=== PATIENT | male | born 1960 | race American Indian/Alaskan Native ===

== ENCOUNTER 2016-10-11 17:20 | Inpatient (IN) | payer MEDICAID ==
--- NOTE | 2016-10-11 18:21 | Cat Scan Report ---
FINAL REPORT PROCEDURE: CT HEAD/BRAIN WO CON TECHNIQUE: Computerized tomography of the head was performed without contrast material. HISTORY: neuro deficits \T\lt; 6hrs or sx present upon awakening COMPARISON: 04/17/2016 FINDINGS: No CT evidence of intracranial mass, hemorrhage, hydrocephalus, or acute territorial infarction. Intracranial arteries are symmetric in density. Two right-sided beto holes are present. No acute fracture is seen. There is opacification of the left maxillary sinus and mucosal thickening of bilateral ethmoid sinuses. IMPRESSION: No CT evidence of acute intracranial abnormality
[2016-10-11 18:52] LABS: Basophils % (Auto) 0.7 % (0.0-1.8); Eosinophils % (Auto) 2.7 % (0.0-4.3); Hematocrit 47.5 % (35.5-45.6); Hemoglobin 15.7 gm/dl (11.8-15.2); Mean Corpuscular HGB Conc 33 % (32-34); Mean Corpuscular Hemoglobin 32 pg (28-32); Mean Corpuscular Volume 96 fl (84-94); Platelet Count 305 K/mm3 (140-440); Red Blood Count 4.95 M/mm3 (3.65-5.03); Red Cell Distribution Width 13.8 % (13.2-15.2)
[2016-10-11 19:00] LABS: INR 0.98 (0.87-1.13)
[2016-10-11 19:01] LABS: Partial Thromboplastin Time 31.7 Sec. (24.2-36.6)
[2016-10-11 19:02] LABS: Anion Gap 22 mmol/L; BUN/Creatinine Ratio 11.81; Blood Urea Nitrogen 13 mg/dL (9-20); Calcium 8.9 mg/dL (8.4-10.2); Carbon Dioxide 22 mmol/L (22-30); Chloride 98.4 mmol/L (98-107); Glucose 89 mg/dL (75-100); Potassium 4.2 mmol/L (3.6-5.0); Sodium 138 mmol/L (137-145)
[2016-10-11] MEDS ORDERED: ASPIRIN PO ONE (21:01)
[2016-10-11] MEDS ORDERED: NORCO 5/325 PO ONE (21:01)
--- NOTE | 2016-10-11 21:08 | Emergency Department Report ---
HPI - General Chief Complaint: Altered Mental Status Time Seen by Provider: 10/11/16 20:51 - HPI HPI: Room 18 Patient is a 56-year-old male presenting with a chief complaint of right upper extremity paresthesia. The patient states yesterday started having a "pins and needles" sensation in his right upper extremity. The patient states today he developed numbness intermittently associated with "pins and needles" sensation area patient denies any symptoms in his lower extremities or face. Patient denies dysarthria or dysphagia. Patient states she is uncertain if his right upper extremity exhibited weakness or not. Patient states the paresthesia that his felt his right upper extremity felt similar to the presentation of his previous CVA. Sensation states he developed a headache this morning Location: Right upper extremity Duration: [see above] Quality: "Pins and needles" and numbness Severity: Moderate Modifying factors: [see above] Context: [see above] Mode of transportation: [not driving] ED Past Medical Hx - Past Medical History Hx Hypertension: Yes Hx CVA: Yes Hx Seizures: Yes Additional medical history: head injury/brain sx 08/2015 - Surgical History Additional Surgical History: brain sx 2015 - Family History Family history: no significant - Social History Smoking Status: Current Every Day Smoker (1/3 pack per day) Substance Use Type: Alcohol (occasional) - Medications Home Medications: Home Medications Medication Instructions Recorded Confirmed Last Taken Type Aspirin EC [Aspirin Enteric Coated 81 mg PO QDAY #30 tablet. 04/19/16 1 Day Ago Rx TAB] 81 Fluticasone [Flonase] 100 mcg NS QDAY 7 Days 04/19/16 10/11/16 1 Day Ago Rx 1 Hydrochlorothiazide [HCTZ] 50 mg PO QDAY #30 tablet 04/19/16 10/11/16 1 Day Ago Rx 25 Simvastatin [Zocor TAB] 40 mg PO QHS #30 tablet 04/19/16 10/11/16 1 Day Ago Rx 20 Verapamil [Calan] 80 mg PO DAILY #30. tablet 04/19/16 10/11/16 1 Day Ago Rx 80 Gabapentin Enacarbil [Horizant] 1,200 mg PO TID 10/11/16 10/11/16 1 Day Ago History 1200 traMADol [Ultram] 50 mg PO BID PRN 10/11/16 10/11/16 1 Day Ago History 50 ED Review of Systems ROS: Stated complaint: RT ARM PAIN Other details as noted in HPI Comment: All other systems reviewed and negative Constitutional: denies: chills, fever Eyes: denies: eye pain, eye discharge, vision change ENT: denies: ear pain, throat pain Respiratory: denies: cough, shortness of breath, wheezing Cardiovascular: denies: chest pain, palpitations Endocrine: no symptoms reported Gastrointestinal: denies: abdominal pain, nausea, diarrhea Genitourinary: denies: urgency, dysuria Musculoskeletal: denies: back pain, joint swelling, arthralgia Neurological: headache, paresthesias Psychiatric: denies: anxiety, depression Hematological/Lymphatic: denies: easy bleeding, easy bruising Physical Exam - Physical Exam Vital Signs: Vital Signs 10/11/16 10/11/16 17:27 20:57 Temperature 98.5 F Pulse Rate 95 H 91 H Respiratory 22 18 Rate Blood Pressure 197/118 Blood Pressure 191/107 [Left] O2 Sat by Pulse 98 99 Oximetry Physical Exam: GENERAL: The patient is well-developed well-nourished male lying on stretcher not appearing to be in acute distress. [] HEENT: Evidence of previous right frontal craniotomy. Atraumatic. Extraocular motions are intact. Patient has moist mucous membranes. NECK: Supple. Trachea midline CHEST/LUNGS: Clear to auscultation. There is no respiratory distress noted. HEART/CARDIOVASCULAR: Regular. There is no tachycardia. There is no gallop rub or murmur. ABDOMEN: Abdomen is soft, nontender. Patient has normal bowel sounds. There is no abdominal distention. SKIN: There is no rash. There is no edema. There is no diaphoresis. NEURO: The patient is awake, alert, and oriented. The patient is cooperative. Cranial nerves II through XII grossly intact. Decreased sensation right upper extremity. Normal sensation bilateral lower extremities. Hydrogen Braze Furnace Operator equal bilaterally. No pronator drift. The patient has normal speech MUSCULOSKELETAL: There is no limitation range of motion. There is no evidence of acute injury. ED Course Vital Signs 10/11/16 10/11/16 17:27 20:57 Temperature 98.5 F Pulse Rate 95 H 91 H Respiratory 22 18 Rate Blood Pressure 197/118 Blood Pressure 191/107 [Left] O2 Sat by Pulse 98 99 Oximetry ED Medical Decision Making - Lab Data Result diagrams: 10/11/16 18:12 10/11/16 18:12 Laboratory Tests 10/11/16 10/11/16 10/11/16 17:58 18:12 18:12 WBC 10.0 RBC 4.95 Hgb 15.7 H Hct 47.5 H MCV 96 H MCH 32 MCHC 33 RDW 13.8 Plt Count 305 Lymph % (Auto) 17.7 Foster % (Auto) 6.5 Eos % (Auto) 2.7 Baso % (Auto) 0.7 Lymph # 1.8 Foster # 0.6 Eos # 0.3 Baso # 0.1 Seg Neutrophils % 72.4 H Seg Neutrophils # 7.2 PT INR APTT Thrombin Time Sodium 138 Potassium 4.2 Chloride 98.4 Carbon Dioxide 22 Anion Gap 22 BUN 13 Creatinine 1.1 Estimated GFR > 60 BUN/Creatinine Ratio 11.81 Glucose 89 POC Glucose 82 Lactic Acid Calcium 8.9 Troponin T 10/11/16 10/11/16 10/11/16 18:12 18:12 18:12 WBC RBC Hgb Hct MCV MCH MCHC RDW Plt Count Lymph % (Auto) Foster % (Auto) Eos % (Auto) Baso % (Auto) Lymph # Foster # Eos # Baso # Seg Neutrophils % Seg Neutrophils # PT 12.9 INR 0.98 APTT 31.7 Thrombin Time Sodium Potassium Chloride Carbon Dioxide Anion Gap BUN Creatinine Estimated GFR BUN/Creatinine Ratio Glucose POC Glucose Lactic Acid 1.2 Calcium Troponin T < 0.010 10/11/16 18:12 WBC RBC Hgb Hct MCV MCH MCHC RDW Plt Count Lymph % (Auto) Foster % (Auto) Eos % (Auto) Baso % (Auto) Lymph # Foster # Eos # Baso # Seg Neutrophils % Seg Neutrophils # PT INR APTT Thrombin Time 15.6 Sodium Potassium Chloride Carbon Dioxide Anion Gap BUN Creatinine Estimated GFR BUN/Creatinine Ratio Glucose POC Glucose Lactic Acid Calcium Troponin T - EKG Data -: EKG Interpreted by Me EKG shows normal: sinus rhythm Rate: normal - EKG Data When compared to previous EKG there are: previous EKG unavailable Interpretation: other (no ST segments or T-wave inversions seen) - Radiology Data Radiology results: report reviewed (CT head), image reviewed (CT head) CT head (read by radiologist)-no CT evidence of acute intracranial abnormality - Differential Diagnosis CVA, TIA, hypertensive urgency, rotator cuff injury, cervical radiculopathy Critical care attestation.: If time is entered above; I have spent that time in minutes in the direct care of this critically ill patient, excluding procedure time. ED Disposition Clinical Impression: CVA (cerebral vascular accident), Paresthesia of right upper extremity Disposition: OP ADMITTED IP TO THIS HOSP Is pt being admited?: Yes Does the pt Need Aspirin: Yes Condition: Fair Referrals: PRIMARY CARE,MD [Primary Care Provider] - 3-5 Days Time of Disposition: 21:15 (hospitalist paged)
[2016-10-12] MEDS: PERCOCET 5/325 PO PRN ×2 (04:58→21:14)
[2016-10-12] MEDS ORDERED: ULTRAM PO PRN (05:19)
[2016-10-12] MEDS ORDERED: SODIUM CHLORIDE FLUSH SYRINGE 10 ML IV PRN (05:39)
--- NOTE | 2016-10-12 05:44 | Event Note ---
Date: 10/11/16 See H/p in reports Acute CVA-??Thalamic stroke HTN HLD PN
[2016-10-12] MEDS ORDERED: GABAPENTIN ENACARBIL 1200 MG PO SCH (08:00)
--- NOTE | 2016-10-12 08:55 | Admit Criteria Form ---
Admission Criteria Documentation: STROKE: ISCHEMIC Clinical Indications for Admission to Inpatient Care (Place 'X' for any and all applicable criteria): Admission is indicated for ANY ONE of the following(1)(2)(3)(4): [X]I. Acute stroke Extended stay beyond goal length of stay may be needed for(1)(2) [ ]a) Major deficit or clinical deterioration [ ]b) Hospital-acquired infection (eg, urinary tract infection, pneumonia) [ ]c) Embolic cause of stroke [ ]d) Venous thromboembolism(9) [ ]e) Seizures [ ]f) Bleeding (eg, cerebral) [ ]g) Increased intracranial pressure [ ]h) Comorbidities [ ]i) Surgical intervention The original [facility] content created by [employer] has been revised. The portions of the content which have been revised are identified through the use of italic text or in bold, and [facility] has neither reviewed nor approved the modified material. All other unmodified content is copyright [facility]. Please see references footnoted in the original [facility] edition 2016 Admission Criteria Met: Yes
[2016-10-12] MEDS ORDERED: ATIVAN IV STA (09:23)
[2016-10-12] MEDS ORDERED: CALAN PO SCH ×2 (10:00)
--- NOTE | 2016-10-12 10:41 | Magnetic Resonance Report ---
MRI OF THE BRAIN WITHOUT CONTRAST: HISTORY: CVA PROCEDURE: Multiplanar, multisequence MR imaging of the brain without IV contrast was performed. FINDINGS: Mild nonspecific chronic white matter changes are identified. Otherwise, the brain parenchyma signal intensity and its coronel white interface are within normal limits on all sequences. No evidence for acute ischemia, hemorrhage or mass. No chronic infarct or extra-axial fluid collection. The midline structures are central. The basal cisterns are patent. Normal ventricular size. The orbital cavities and sella turcica demonstrate no abnormality. There is complete opacification left maxillary sinus with fluid and mucosal thickening. Diffusion restriction overlies the left maxillary sinus consistent with acute sinusitis. IMPRESSION: No acute intracranial process. Chronic white matter changes. Correlate for acute left maxillary sinusitis.
--- NOTE | 2016-10-12 10:46 | Magnetic Resonance Report ---
MRA HEAD WITHOUT CONTRAST HISTORY: CVA. [id number] imaging with MIP reformations of the bois forte of [place] is submitted. The arteries appear widely patent and free of hemodynamically significant stenosis or aneurysm dilatation. Both vertebral arteries are identified appearing patent as well. IMPRESSION: Unremarkable MRA head.
--- NOTE | 2016-10-12 11:09 | Consultation ---
History of Present Illness Consult date: 10/12/16 Requesting physician: FORREST PATTERSON Reason for Consult: stroke Chief complaint: R arm numbness/tingling History of present illness: 56 YO M Hx stroke in Aug 2014 c/b residual L hemiparesis who p/w acute onset of R arm numbness/tingling and pain on 10/10. Sx were intermittent waxing and waning but concerning to patient as similar to prior stroke sx. he is unclear of any weakness. There were no clear aggravating, relieving or temporal factors. severity was such to cause the patient to favor his weaker L hand. He denies facial or leg sx. Past History Past Medical History: hypertension, stroke Past Surgical History: Other Social history: no significant social history, single, Lives alone Family history: hypertension Medications and Allergies Allergies Allergy/AdvReac Type Severity Reaction Status Date / Time No Known Allergies Allergy Unverified 04/17/16 15:30 Home Medications Medication Instructions Recorded Confirmed Last Taken Type Aspirin EC [Aspirin Enteric Coated 81 mg PO QDAY #30 tablet. 04/19/16 1 Day Ago Rx TAB] 81 Fluticasone [Flonase] 100 mcg NS QDAY 7 Days 04/19/16 10/11/16 1 Day Ago Rx 1 Hydrochlorothiazide [HCTZ] 50 mg PO QDAY #30 tablet 04/19/16 10/11/16 1 Day Ago Rx 25 Simvastatin [Zocor TAB] 40 mg PO QHS #30 tablet 04/19/16 10/11/16 1 Day Ago Rx 20 Verapamil [Calan] 80 mg PO DAILY #30. tablet 04/19/16 10/11/16 1 Day Ago Rx 80 Gabapentin Enacarbil [Horizant] 1,200 mg PO TID 10/11/16 10/11/16 1 Day Ago History 1200 traMADol [Ultram] 50 mg PO BID PRN 10/11/16 10/11/16 1 Day Ago History 50 Active Meds: Active Medications Aspirin (Halfprin Ec) 81 mg PO QDAY [facility] Enoxaparin Sodium (Lovenox) 40 mg SUB-Q QDAY [facility] Fluticasone Propionate (Flonase) 100 mcg NS QDAY [facility] Hydrochlorothiazide (Hctz) 50 mg PO QDAY [facility] Sodium Chloride (Nacl 0.9% 1000 Ml) 1,000 mls @ 75 mls/hr IV DIRECT [facility] Miscellaneous Medication (Gabapentin Enacarbil [Horizant]) 1,200 mg PO TID [facility] Oxycodone/Acetaminophen (Percocet 5/325) 1 tab PO Q6H PRN PRN Reason: Pain, Moderate (4-6) Last Admin: 10/12/16 04:58 Dose: 1 tab Potassium Chloride (K-Dur) 20 meq PO QDAY [facility] Simvastatin (Zocor) 20 mg PO QHS [facility] Sodium Chloride (Sodium Chloride Flush Syringe 10 Ml) 10 ml IV PRN PRN PRN Reason: LINE FLUSH Tramadol HCl (Ultram) 50 mg PO BID PRN PRN Reason: Pain Verapamil HCl (Calan Sr) 240 mg PO DAILY [facility] Review of Systems All systems: negative Constitutional: weakness Neurological: weakness, parathesias, numbness, tingling, motor disturbance, sensory deficit Physical Examination - Vital Signs Vital Signs: Vital Signs Temp Pulse Resp BP Pulse Ox 98.5 F 95 H 22 197/118 98 10/11/16 17:27 10/11/16 17:27 10/11/16 17:27 10/11/16 17:27 10/11/16 17:27 - Constitutional General appearance: comfortable - EENT EENT: Present: ATNC, PERRL, mucous membranes moist, hearing intact, vision intact - Respiratory Respiratory: Present: chest non-tender, normal breath sounds, no respiratory distress - Cardiovascular Cardiovascular: Present: regular rate Extremities: Present: no peripheral edema bilatateraly, no clubbing, cyanosis, no inflammation, no ischemia or petechiae - Gastrointestinal Gastrointestinal: Present: normoactive bowel sounds, non-distended - Integumentary Integumentary: Present: normal - Neurologic Cranial nerve examination: PERRL, EOMI, VFF, V1/V2/V3 grossly intact, tongue midline, intact, intact shoulder shrug, intact cough reflex, Intact Vestibulo- ocular r, intact corneal reflex, facial droop (on L) Speech examination: intact Sensorimotor examination: pronator drift, hemiparesis (on L) Motor examination - right side: 5/5: biceps, triceps, wrist flexion, wrist extension, solutions development analyst, hip flexors, knee extensors, dorsiflexion, toe extension (EHL) , plantarflexion Motor examination - left side: 4/5: biceps, triceps, wrist flexion, wrist extension, solutions development analyst, hip flexors, knee extensors, dorsiflexion, toe extension (EHL) , plantarflexion Detailed sensory examination: light touch (diminished on L compared to R), temperature (diminished on L compared to R) Reflex and gait examination: Babinski's sign (on L) Reflexes: 3+: ankle (on L), bicep, knee, tricep - Musculoskeletal Musculoskeletal: Present: no fluid collection, normal range of motion Results - Laboratory Findings CBC and BMP: 10/11/16 18:12 10/11/16 18:12 - Diagnostic Findings Additional findings: MRI Brain nonacute white matter disease. CDs neg. Assessment and Plan 56 YO M Hx HTN and stroke in Aug 2014 c/b residual L F/A/L hypoesthesia and hemiparesis p/w 2 day hx of intermittent R arm migratory numbness/tingling pain w/ affirmed neck pain. There is no weakness or reflex abnormality evident in the R hemibody while the L hemibody findings are likely chronic. CTH neg. CDs neg. MRI Brain nonacute white matter disease w/o acute infarct. Clinical syn likely HTN emergency vs. cervical radiculopathy, not TIA/stroke Plan and Recommendation: 1. Telemetry bed w/ Q4 hour neuro checks 2. Pt declines offer of MRI C-spine during admission. There is no emergent role for this study in the absence of myelopathic features. 3. Can lower MAPs by 10-15% daily to reach goal SBP 120-160 4. Secondary stroke prevention: Cont home ASA/statin. 5. Can cont analgesic therapy. 6. Outpt neurological follow up recommended to reconsider MRI C-spine should sx be persistent or worsen. 7. We can revisit as needed.
[2016-10-12] MEDS: FLONASE NS SCH (11:11)
[2016-10-12] MEDS: LOVENOX SUB-Q SCH (11:11)
[2016-10-12] MEDS: HCTZ PO SCH (11:13)
[2016-10-12] MEDS: HALFPRIN EC PO SCH (11:13)
[2016-10-12] MEDS: K-DUR PO SCH (11:14)
[2016-10-12] MEDS: CALAN SR PO SCH (11:16)
--- NOTE | 2016-10-12 14:27 | Consultation ---
History of Present Illness - Reason for Consult Consult date: 10/12/16 Evaluate for Acute IRU - History of Present Illness 56 y.o. male with prior right CVA and minimal residual left sided hemiparesis who presented with acute onset of RUE numbness and parasthesias. CVA work-up initiated. CT Brain negative; F/U MRI Brain also negative for acute CVA. Consult placed for post-acute placement recommendations. Past History Past Medical History: hypertension, seizures, stroke Past Surgical History: Other (craniotomy for aneurysm) Social history: no significant social history, , lives with family Family history: hypertension, stroke Medications and Allergies Allergies Allergy/AdvReac Type Severity Reaction Status Date / Time No Known Allergies Allergy Unverified 04/17/16 15:30 Home Medications Medication Instructions Recorded Confirmed Last Taken Type Aspirin EC [Aspirin Enteric Coated 81 mg PO QDAY #30 tablet. 04/19/16 1 Day Ago Rx TAB] 81 Fluticasone [Flonase] 100 mcg NS QDAY 7 Days 04/19/16 10/11/16 1 Day Ago Rx 1 Hydrochlorothiazide [HCTZ] 50 mg PO QDAY #30 tablet 04/19/16 10/11/16 1 Day Ago Rx 25 Simvastatin [Zocor TAB] 40 mg PO QHS #30 tablet 04/19/16 10/11/16 1 Day Ago Rx 20 Verapamil [Calan] 80 mg PO DAILY #30. tablet 04/19/16 10/11/16 1 Day Ago Rx 80 Gabapentin Enacarbil [Horizant] 1,200 mg PO TID 10/11/16 10/11/16 1 Day Ago History 1200 traMADol [Ultram] 50 mg PO BID PRN 10/11/16 10/11/16 1 Day Ago History 50 Active Meds: Active Medications Aspirin (Halfprin Ec) 81 mg PO QDAY [facility] Last Admin: 10/12/16 11:13 Dose: 81 mg Enoxaparin Sodium (Lovenox) 40 mg SUB-Q QDAY [facility] Last Admin: 10/12/16 11:11 Dose: 40 mg Fluticasone Propionate (Flonase) 100 mcg NS QDAY [facility] Last Admin: 10/12/16 11:11 Dose: 100 mcg Gabapentin (Neurontin) 1,200 mg PO TID [facility] Hydrochlorothiazide (Hctz) 50 mg PO QDAY [facility] Last Admin: 10/12/16 11:13 Dose: 50 mg Sodium Chloride (Nacl 0.9% 1000 Ml) 1,000 mls @ 75 mls/hr IV DIRECT [facility] Oxycodone/Acetaminophen (Percocet 5/325) 1 tab PO Q6H PRN PRN Reason: Pain, Moderate (4-6) Last Admin: 10/12/16 04:58 Dose: 1 tab Potassium Chloride (K-Dur) 20 meq PO QDAY [facility] Last Admin: 10/12/16 11:14 Dose: 20 meq Simvastatin (Zocor) 20 mg PO QHS [facility] Sodium Chloride (Sodium Chloride Flush Syringe 10 Ml) 10 ml IV PRN PRN PRN Reason: LINE FLUSH Tramadol HCl (Ultram) 50 mg PO BID PRN PRN Reason: Pain Verapamil HCl (Calan Sr) 240 mg PO DAILY [facility] Last Admin: 10/12/16 11:16 Dose: 240 mg Review of Systems All systems: negative Ears, nose, mouth and throat: headache (intermittent) Cardiovascular: no chest pain, no lightheadedness Respiratory: dyspnea on exertion, no cough Gastrointestinal: no nausea, no vomiting Genitourinary Male: no dysuria Musculoskeletal: arm numbness/tingling Exam - Constitutional Vitals: Vital Signs - 12hr 10/12/16 10/12/16 10/12/16 04:00 07:00 07:23 Temperature 98.0 F 98.4 F Pulse Rate [ 60 57 L Left Radial] Respiratory 20 20 Rate Blood Pressure 170/87 165/96 [Left Arm] O2 Sat by Pulse 97 98 Oximetry General appearance: no acute distress, other (sitting up in bed; present) - EENT Eyes: EOM intact ENT: hearing intact - Neck Neck: supple, normal ROM - Respiratory Respiratory effort: normal Respiratory: bilateral: CTA - Cardiovascular Rhythm: regular Heart Sounds: Present: S1 & S2 - Extremities Extremities: No edema - Gastrointestinal General gastrointestinal: Present: soft, non-tender, non-distended, normal bowel sounds - Integumentary Integumentary: Present: clear - Musculoskeletal Musculoskeletal: strength equal bilaterally (4/5 throughout) - Neurologic Neurologic: CNII-XII intact, moves all extremities, other (sensation grossly intact) - Psychiatric Psychiatric: intact judgment & insight, memory intact (oriented to self; poor historian of medical conditions), cooperative, other (flat affect) - Labs CBC & Chem 7: 10/11/16 18:12 10/11/16 18:12 Labs: Laboratory Results - last 72 hr 10/12/16 06:20 POC Glucose 95 Assessment and Plan Patient was assessed and evaluated for Acute Inpatient Rehab Unit. 56 yo male with prior CVA admitted to R/O CVA; work-up negative; ?symptoms secondary to cervical radiculopathy. Pt is pending PT/OT evaluations; need for home vs outpt therapy to follow based on level of independence with therapies. Ongoing HTN management per IM. Please call for further questions. Thank you for consultation. - Patient Problems (1) Paresthesia of right upper extremity Current Visit: Yes Status: Acute (2) History of CVA with residual deficit Current Visit: Yes Status: Acute (3) HTN (hypertension), benign Current Visit: Yes Status: Chronic
[2016-10-12] MEDS: NACL 0.9% 1000 ML 1,000 ML IV SCH (14:35)
[2016-10-12] MEDS: NEURONTIN PO SCH ×2 (14:37→21:12)
--- NOTE | 2016-10-12 16:25 | Progress Note ---
Assessment and Plan Assessment and plan: 1. Generalized weakness Most likely due to chronic debility, stroke work up is negative so far, MRI/ MRA brain are negative. Follow-up echo and carotid Dopplers 2. Accelerated HTN We'll optimize medications 3. HLD check lipid panel History Interval history: Patient if he has right-sided weakness, however his states that his weakness is generalized, he's not quite sure he knows he is weak all over but he is more bothered with the weakness in his right side Hospitalist Physical - Physical exam Narrative exam: General: Patient appears well in no distress HEENT: MMM, EOMI cardiac: S1-S2 heard lungs: clear to auscultation, abdomen: soft, nontender, nondistended bowel sounds positive extremities: no edema clubbing or cyanosis Skin: no rash or lesion Neuro: generalized weaknesss, but no focal deficit Psych: appropriate behavior and mood, cognition intact - Constitutional Vitals: Temp Pulse Resp BP Pulse Ox 98.4 F 57 L 20 165/96 98 10/12/16 07:00 10/12/16 07:00 10/12/16 07:00 10/12/16 07:00 10/12/16 07:23 General appearance: Present: no acute distress, other (sitting up in bed; present) Results - Labs CBC & Chem 7: 10/11/16 18:12 10/11/16 18:12 Labs: Laboratory Last Values WBC 10.0 K/mm3 (4.5-11.0) 10/11/16 18:12 RBC 4.95 M/mm3 (3.65-5.03) 10/11/16 18:12 Hgb 15.7 gm/dl (11.8-15.2) H 10/11/16 18:12 Hct 47.5 % (35.5-45.6) H 10/11/16 18:12 MCV 96 fl (84-94) H 10/11/16 18:12 MCH 32 pg (28-32) 10/11/16 18:12 MCHC 33 % (32-34) 10/11/16 18:12 RDW 13.8 % (13.2-15.2) 10/11/16 18:12 Plt Count 305 K/mm3 (140-440) 10/11/16 18:12 Lymph % (Auto) 17.7 % (13.4-35.0) 10/11/16 18:12 [place] % (Auto) 6.5 % (0.0-7.3) 10/11/16 18:12 Eos % (Auto) 2.7 % (0.0-4.3) 10/11/16 18:12 Baso % (Auto) 0.7 % (0.0-1.8) 10/11/16 18:12 Lymph # 1.8 K/mm3 (1.2-5.4) 10/11/16 18:12 [place] # 0.6 K/mm3 (0.0-0.8) 10/11/16 18:12 Eos # 0.3 K/mm3 (0.0-0.4) 10/11/16 18:12 Baso # 0.1 K/mm3 (0.0-0.1) 10/11/16 18:12 Seg Neutrophils % 72.4 % (40.0-70.0) H 10/11/16 18:12 Seg Neutrophils # 7.2 K/mm3 (1.8-7.7) 10/11/16 18:12 PT 12.9 Sec. (12.2-14.9) 10/11/16 18:12 INR 0.98 (0.87-1.13) 10/11/16 18:12 APTT 31.7 Sec. (24.2-36.6) 10/11/16 18:12 Thrombin Time 15.6 Sec. (15.1-19.6) 10/11/16 18:12 Sodium 138 mmol/L (137-145) 10/11/16 18:12 Potassium 4.2 mmol/L (3.6-5.0) 10/11/16 18:12 Chloride 98.4 mmol/L (98-107) 10/11/16 18:12 Carbon Dioxide 22 mmol/L (22-30) 10/11/16 18:12 Anion Gap 22 mmol/L 10/11/16 18:12 BUN 13 mg/dL (9-20) 10/11/16 18:12 Creatinine 1.1 mg/dL (0.8-1.5) 10/11/16 18:12 Estimated GFR > 60 ml/min 10/11/16 18:12 BUN/Creatinine Ratio 11.81 % 10/11/16 18:12 Glucose 89 mg/dL (75-100) 10/11/16 18:12 POC Glucose 95 (70-105) 10/12/16 06:20 Lactic Acid 1.2 mmol/L (0.7-2.0) 10/11/16 18:12 Calcium 8.9 mg/dL (8.4-10.2) 10/11/16 18:12 Troponin T < 0.010 ng/mL (0.00-0.029) 10/11/16 18:12 - Imaging and Cardiology MRI - head: image reviewed (no evidence of acute stroke)
--- NOTE | 2016-10-12 16:40 | History and Physical Report ---
CHIEF COMPLAINT: Right upper extremity numbness since one day. HISTORY OF PRESENT ILLNESS: A 56-year-old -Citizen Of [place] male with past medical history of cerebrovascular accident with left-sided involvement causing left hemiparesis, which has improved to near normal. Now comes in for right-sided numbness in the right upper extremity, developed numbness intermittently since yesterday. Denies any symptoms in his lower extremities or face. Denies dysarthria or dysphagia. Also states that he has some slight weakness in the right upper extremity. The patient has history of numbness in both the feet for which he is being treated. No urinary incontinence. No difficulty swallowing. No nasal regurgitation of fluids. No diplopia. PAST MEDICAL HISTORY: As mentioned significant for hypertension, hyperlipidemia, cerebrovascular accident, and seizure disorder. PAST SURGICAL HISTORY: Brain subdural hematoma removal in 2016 on the right side and left side hemiparesis, which resolved. FAMILY HISTORY: Hypertension. SOCIAL HISTORY: Currently smokes about one-third pack a day. Alcohol occasionally. CURRENT MEDICATIONS: Aspirin 81 mg once a day, Flonase 100 mcg once a day, hydrochlorothiazide 50 mg p.o. daily, simvastatin 40 mg p.o. at bedtime, verapamil 80 mg p.o. daily, gabapentin 1200 mg p.o. t.i.d., and tramadol ____ mg p.o. b.i.d. REVIEW OF SYSTEMS: Significant for; CONSTITUTIONAL: No weight loss, no weight gain. HEENT: No sore throat, no postnasal drip. CARDIOVASCULAR: No chest pain, no palpitations. RESPIRATORY SYSTEM: No shortness of breath, no cough, no wheezing. GASTROINTESTINAL: No nausea, no vomiting, no diarrhea. GENITOURINARY SYSTEM: No dysuria, no flank pain. MUSCULOSKELETAL SYSTEM: No joint pains or muscle pains. CENTRAL NERVOUS SYSTEM: Right upper extremity numbness present for one day. No weakness in the right lower extremity or left upper and left lower extremity. PSYCHIATRIC: No anxiety, no depression. HEMATOLOGIC AND LYMPHATIC: Denies easy bleeding or bruising. A 14-point review of systems done, essentially negative. PHYSICAL EXAMINATION: GENERAL: Middle-aged male cooperative during examination. VITAL SIGNS: Blood pressure is 197/118, temperature is 98.5, pulse is 95, respirations are 22, and sats 98%. HEENT: Unremarkable. Pupils equal and reactive. NECK: Supple, no lymphadenopathy, no thyromegaly. LUNGS: Clear to auscultation and percussion. CARDIOVASCULAR: No gallop, no murmur, no rub. Apical impulse in left fifth intercostal space and midclavicular line. ABDOMEN: Soft and benign. No hepatosplenomegaly. No guarding, no rigidity. Hernial orifices are normal. EXTREMITIES: Good pedal pulses. No pedal edema. CENTRAL NERVOUS SYSTEM: Alert and oriented x 4, nonfocal exam. Decreased sensory system. Decreased sensation in the right upper extremity. Reflexes are normal. Power is 4+/5 power in the left upper and left lower extremity. The power is also 4+/5 power in the right upper and right lower extremities. LABORATORY DATA AND DIAGNOSTIC STUDIES: Significant for hemoglobin of 15.7 and 47.5 hematocrit, white count is 10,000, glucose is 89. Electrolytes are normal. Sodium is 138, potassium is 4.2, chloride is 98.4, bicarbonate is 22. BUN and creatinine [address] of the head, no acute intracranial abnormalities. EKG shows normal. No ST segments or T-wave inversions. ASSESSMENT AND PLAN: 1. Acute cerebrovascular accident involving probably a thalamic stroke causing the right upper extremity numbness. We will get MRI, MRA, carotid duplex scan, and echocardiogram. Aspirin to continue. Neuro consult with Dr. Rowe requested. 2. Hyperlipidemia. Continue simvastatin 40 mg daily. 3. Hypertension. Continue verapamil 80 mg change to 240 mg because of uncontrolled hypertension, hydrochlorothiazide 50 mg daily, potassium to be added because of the hydrochlorothiazide. 4. Seizure disorder. Continue gabapentin 1200 mg t.i.d. 5. Peripheral neuropathy by history. Continue gabapentin. 6. Deep venous thrombosis prophylaxis, Lovenox 40 mg subcutaneous daily. JOB# [id number] VSM/NTS
[2016-10-12] MEDS: HABITROL TD SCH (21:16)
[2016-10-12] MEDS ORDERED: ZOCOR PO SCH ×3 (22:00)
[2016-10-13] MEDS: NACL 0.9% 1000 ML 1,000 ML IV SCH (04:32)
[2016-10-13 08:21] VITALS: BP 170/94
[2016-10-13] MEDS: NEURONTIN PO SCH ×2 (08:45→13:36)
[2016-10-13] MEDS: FLONASE NS SCH (09:31)
[2016-10-13] MEDS: HALFPRIN EC PO SCH (09:32)
[2016-10-13] MEDS: CALAN SR PO SCH (09:32)
[2016-10-13] MEDS: K-DUR PO SCH (09:32)
[2016-10-13] MEDS: LOVENOX SUB-Q SCH (09:32)
[2016-10-13] MEDS: HCTZ PO SCH (09:32)
[2016-10-13] MEDS: HABITROL TD SCH (09:32)
[2016-10-13] MEDS: PERCOCET 5/325 PO PRN (10:38)
--- NOTE | 2016-10-13 11:17 | Discharge Summary ---
Providers - Providers Date of Admission: 10/11/16 21:17 Date of discharge: 10/13/16 Attending physician: FLAKO VICKERS 10/12/16 Consult to Physician [CONS] Routine Consulting Provider: DENNIS JEWELL Reason For Exam: CVA Place consult to:: answering machine Notified:: answering machine Phone number called:: [phone] Was contact made?: No Time called:: 09:24 10/12/16 05:39 Occupational Therapy Evaluate and Treat [CONS] Routine Comment: Reason For Exam: Neuro deficits Physical Therapy Evaluation and Treat [CONS] Routine Comment: Reason For Exam: Neuro deficits Speech Therapy Evaluation and Treat [CONS] Routine Reason For Exam: swallow eval 10/12/16 05:54 Consult to Physician [CONS] Routine Consulting Provider: PRAVEENA BUCKLEY Reason For Exam: cva Place consult to:: dr. buckley Notified:: office Phone number called:: [phone] Was contact made?: Yes If yes, spoke with:: carol Time called:: 09:29 Primary care physician: [employer] Hospitalization Condition: Stable Pertinent studies: CT of the head showed no evidence of acute intracranial abnormality, MRI of the brain showed no acute intracranial process, chronic white matter changes, correlate for acute left maxillary sinusitis, MRA of the headache was unremarkable, echo and carotid Doppler report pending Procedures: None Disposition: DISCHARGED TO HOME OR SELFCARE Core Measure Documentation - Palliative Care Palliative Care/ Comfort Measures: Not Applicable - Core Measures Any of the following diagnoses?: none Exam - Constitutional Vitals: Temp Pulse Resp BP Pulse Ox 97.7 F 65 16 170/94 96 10/13/16 07:35 10/13/16 07:35 10/13/16 07:35 10/13/16 07:35 10/13/16 07:35 General appearance: Present: no acute distress, well-nourished - EENT Eyes: Present: PERRL ENT: hearing intact, clear oral mucosa - Neck Neck: Present: supple, normal ROM - Respiratory Respiratory effort: normal Respiratory: bilateral: CTA - Cardiovascular Heart Sounds: Present: S1 & S2. Absent: rub, click - Extremities Extremities: pulses symmetrical, No edema Peripheral Pulses: within normal limits - Abdominal General gastrointestinal: Present: soft, non-tender, non-distended, normal bowel sounds Male genitourinary: Present: normal - Integumentary Integumentary: Present: clear, warm, dry - Musculoskeletal Musculoskeletal: generalized weakness - Psychiatric Psychiatric: appropriate mood/affect, intact judgment & insight - Neurologic Neurologic: CNII-XII intact, moves all extremities Plan Activity: advance as tolerated Diet: low fat, low cholesterol, low salt Special Instructions: record daily BP diary, smoking cessation Follow up with: PRIMARY CARE, [Primary Care Provider] - 3-5 Days Prescriptions: Aspirin EC [Aspirin Enteric Coated TAB] 81 mg PO QDAY #30 tablet. Hydrochlorothiazide [HCTZ] 50 mg PO QDAY #30 tablet Simvastatin [Zocor TAB] 40 mg PO QHS #30 tablet Verapamil ER [Calan SR] 240 mg PO DAILY #30 tablet
[2016-10-13] MEDS ORDERED: FLUARIX QUAD 2016-2017(36 MOS+) IM ONE (12:00)
--- NOTE | 2016-10-16 14:00 | Query- Present on Admission ---
Vincent Navarro Date:_10/16/16 Certified Prosthetist/CDS:Patricia/ Reuben Zuleta Phone#:_[phone] Exercise your independent professional judgment when responding to this query. Questions asked do not imply a particular answer is desired or expected. We greatly appreciate your clarification on this issue. Clinical Documentation States: 56 Y/O Male admitted on 10/11/16 with Hx. of CVA with left sided involvement presents with right sided numbness in the upper extremity intermittently since yesterday. Consult note: Clinical symptoms likely due to Hypertensive Emergency Clinical Findings Show: BP: 197/118 on admission Based on the above clinical scenario and your knowledge of the patient's case please clarify if the diagnosis stated below was present on admission: Diagnosis: Hypertensive emergency Present on admission : [ ] Yes (Y) [ ] Clinically undeterminable(W) [ ] No (N) Please also document response in your Progress Notes and/or Discharge Summary and indicate if the condition was present on admission. CASANDRAD
--- NOTE | 2016-10-19 07:26 | Vascular Lab Report ---
CAROTID DUPLEX STUDY: RIGHT PSVEDV CCA PROX: 96 7 CCA DIST:[id number] ICA PROX: 7913 ICA MID: 9219 ICA DIST:[id number] ECA: [id number] VERT: 65 10 LEFT PSVEDV CCA PROX:[id number] CCA DIST: 9118 ICA PROX: 67 9 ICA MID: 9317 ICA DIST:[id number] ECA: [id number] VERT: 73 12 REASON FOR EXAM: Stroke. COMMENTS ON THE RIGHT: Doppler frequency analysis is consistent with 16 to 49 percent diameter reduction of the internal carotid artery. Minimal amount of plaque is seen. The common carotid artery is patent. The external carotid artery is patent. The vertebral artery has antegrade flow. COMMENTS ON THE LEFT: Doppler frequency analysis is consistent with 16 to 49 percent diameter reduction of the internal carotid artery. Minimal amount of plaque is seen. The common carotid artery is patent. The external carotid artery is patent. The vertebral artery has antegrade flow. IMPRESSION: Less than 50% diameter reduction in the internal carotid arteries bilaterally. Consider repeat carotid artery duplex in 12 months.
== END 2016-10-13 14:35 | disposition home health service (06) | DRG 305 ==
LOC: ED 17:20 → 3A 21:17
PROVIDERS: ADMIT Internal Medicine; ATTEND Family Medicine
DX: I16.1 Hypertensive emergency (principal); R53.81 Other malaise; R20.8 Other disturbances of skin sensation; J01.00 Acute maxillary sinusitis, unspecified; M54.12 Radiculopathy, cervical region; E78.5 Hyperlipidemia, unspecified; G40.909 Epilepsy, unspecified, not intractable, without status epilepticus; F17.210 Nicotine dependence, cigarettes, uncomplicated; G62.9 Polyneuropathy, unspecified; I69.354 Hemiplegia and hemiparesis following cerebral infarction affecting left non-dominant side; Z82.49 Family history of ischemic heart disease and other diseases of the circulatory system
CPT/HCPCS: 36415; 70450; 70544; 70551; 80048; 80061; 82140; 82607; 82962; 83036; 84484; 85025; 85610; 85670; 85730; 90686; 93005; 93010; 93306; 93880; J1650; J2060; J7030